=== PATIENT | female | born 1985 | race Caucasian/White ===

== ENCOUNTER → 2020-06-30 10:48 | Outpatient (CLI) | payer OTHER, SELFPAY ==
--- NOTE | 2020-06-30 10:50 | DI.RAD.S_ITS ---
PROCEDURE: XR FOOT RT MIN 3V INDICATIONS: swelling, bruising, limping gait, r/o fracture TECHNIQUE: 3 views of the foot were acquired. COMPARISON: None. FINDINGS: Bones: No fractures or dislocations. No suspicious bony lesions. Soft tissues: No tibiotalar joint effusion. Achilles tendon appears normal. IMPRESSION: Normal for age, source of current pain after trauma symptoms is not seen. Dictated by: Trace Lara M.D. on 06/30/2020 at 11:20 Approved by: Trace Lara M.D. on 06/30/2020 at 11:21
--- NOTE | 2020-06-30 10:50 | DI.RAD.S_ITS ---
PROCEDURE: XR ANKLE RT MIN 3V INDICATIONS: swelling, bruising, limping gait, r/o fracture TECHNIQUE: 3 views of the ankle were acquired. COMPARISON: None. FINDINGS: Bones: No fractures or dislocations. Ankle mortise is normally aligned. No suspicious bony lesions. Soft tissues: No tibiotalar joint effusion. Achilles tendon appears normal. IMPRESSION: No trauma found. Dictated by: Trace Lara M.D. on 06/30/2020 at 11:21 Approved by: Trace Lara M.D. on 06/30/2020 at 11:33
== END ==
PROVIDERS: Referring Provider Physician Assistant; Visit Provider Physician Assistant
DX: S90.31XA Contusion of right foot, initial encounter (principal); M25.474 Effusion, right foot; X58.XXXA Exposure to other specified factors, initial encounter; R26.89 Other abnormalities of gait and mobility
CPT/HCPCS: 73610; 73630

== ENCOUNTER → 2022-11-15 10:28 | Outpatient (CLI) | payer OTHER, SELFPAY ==
[2022-11-15 11:55] LABS: Influenza A - CEPHEID Flu A POSITIVE (NEGATIVE); Influenza B - CEPHEID Flu B NEGATIVE (NEGATIVE); Respiratory Syncytial Virus Negative (Negative)
[2022-11-15 11:56] LABS: COVID-19 CEPHEID 4-PLEX PCR Negative (Negative)
== END ==
PROVIDERS: Visit Provider Physician Assistant Medical
DX: R05.1 Acute cough (principal); Z20.822 Contact with and (suspected) exposure to COVID-19
CPT/HCPCS: 0241U

== ENCOUNTER 2023-06-11 16:41 | Emergency (ER) | payer OTHER, SELFPAY ==
[2023-06-11 16:46] VITALS: BP 108/60; PULSE 54; RESP 16; TEMP 36.6; O2SAT 100; BMI 27.4
--- NOTE | 2023-06-11 16:51 | DI.RAD.S_ITS ---
PROCEDURE: XR ANKLE RT MIN 3V INDICATIONS: fall with pain TECHNIQUE: 3 views of the ankle were acquired. COMPARISON: [facility], CR, XR ANKLE RT MIN 3V, 06/30/2020, 10:43. FINDINGS: Bones: No fractures or dislocations. Ankle mortise is normally aligned. No suspicious bony lesions. Soft tissues: No tibiotalar joint effusion. Achilles tendon appears normal. Moderate lateral malleolar soft tissue edema. IMPRESSION: Lateral malleolar soft tissue swelling without underlying fracture or dislocation. If there is persistent clinical concern for occult fracture given adequate mechanism of injury, consider repeat imaging in 10-14 days. Dictated by: Milan Cameron M.D. on 06/11/2023 at 16:27 Approved by: Milan Cameron M.D. on 06/11/2023 at 16:28
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
[2023-06-11 20:39] VITALS: BP 114/67; PULSE 45; RESP 16; O2SAT 100
== END 2023-06-11 20:39 | disposition home or self-care (01) ==
PROVIDERS: Emergency Provider Emergency Medicine
DX: S93.401A Sprain of unspecified ligament of right ankle, initial encounter (principal); V18.0XXA Pedal cycle driver injured in noncollision transport accident in nontraffic accident, initial encounter
CPT/HCPCS: 73610; 99282